=== PATIENT | male | born 1935 | race Caucasian/White ===

== ENCOUNTER 2017-02-24 14:39 | Emergency (ER) | payer OTHER ==
[~2017-02-24] VITALS: Ht 167.6 cm; Wt 78.5 kg
[~2017-02-24 14:39] MED LIST: ASCA500 PO
[2017-02-24 14:41] VITALS: TEMP 36.6
[2017-02-24 15:03] VITALS: O2SAT 97
[2017-02-24 15:09] VITALS: Ht 167.6 cm; Wt 78.5 kg
[2017-02-24 15:24] LABS: BASO % 0.4 %; BASO ABS # 0.03 K/uL (0-0.2); COMPLETE YES; EOS % 1.9 %; IG% 0.1 %; LYMPH % 22.8 %; LYMPH ABS # 1.52 K/uL (1.2-3.4); MEAN CELL VOLUME 95.2 fL (80-100); MEAN CORPUSCULAR HEMOGLOBIN 32.3 pg (25-34); MEAN CORPUSCULAR HGB CONC 33.9 g/dl (32-36); MEAN PLATELET VOLUME 11.9 fL (7.4-10.4); NEUT % 65.8 %; PLATELET COUNT 168 K/uL (130-400); RED BLOOD COUNT 4.62 M/uL (4.7-6.1); WHITE BLOOD COUNT 6.68 K/uL (4.8-10.8)
[2017-02-24 15:30] LABS: BLOOD UREA NITROGEN 19 mg/dl (7-18); BUN/CREATININE RATIO 14.8 (10-20); CARBON DIOXIDE 27 mmol/L (21-32); CHLORIDE 108 mmol/L (98-107); GLUCOSE 117 mg/dl (70-99); MAGNESIUM 2.6 mg/dl (1.8-2.4); POTASSIUM 4.1 mmol/L (3.5-5.1); SODIUM 142 mmol/L (136-145)
[2017-02-24] MEDS ORDERED: ACET-1256 PO (15:32)
[2017-02-24] MEDS ORDERED: [UNRECOGNIZED DRUG - CODE] TD (15:32)
[2017-02-24] MEDS ORDERED: TRMCR180 TOP (15:32)
[2017-02-24] MEDS ORDERED: AMLO-110 PO (15:32)
[2017-02-24] MEDS ORDERED: ATEN-173 PO (15:32)
[2017-02-24 15:34] LABS: PARTIAL THROMBOPLASTIN RATIO 0.9; PROTHROMBIN TIME (PATIENT) 10.5 SECONDS (9.0-12.0)
[2017-02-24 15:41] LABS: ALKALINE PHOSPHATASE 83 U/L (45-117); ALT/SGPT 17 U/L (12-78); AST/SGOT 13 U/L (15-37); CKMB/CK RATIO 1.5 (0-3.0); THYROID STIMULATING HORMONE 0.924 uIu/ml (0.300-4.500)
--- NOTE | 2017-02-24 15:56 | DIAGNOSTIC IMAGING REPORT ---
CHEST ONE VIEW PORTABLE CLINICAL HISTORY: Weakness. COMPARISON STUDY: No previous studies for comparison. FINDINGS: Incidental note is made of severe arthritis of both glenohumeral joints, more severe on the left. No pneumothorax or pleural effusion is identified. There is no consolidation to suggest pneumonia. Pulmonary vascularity is normal. A 9 mm density projecting of the right lower lung could reflect a calcified nodule or summation of pulmonary vessels. This is benign. IMPRESSION: No acute cardiopulmonary findings. Electronically signed by: Juvenal Kingston M.D. 02/24/2017 3:55 PM Dictated Date/Time: 02/24/2017 3:54 PM
[2017-02-24 16:30] LABS: LYME DISEASE AB IGG NEG (NEG); LYME DISEASE AB IGM NEG (NEG)
[2017-02-24 17:23] LABS: URINE APPEARANCE CLEAR (CLEAR); URINE BILIRUBIN NEG (NEG); URINE COLOR YELLOW; URINE NITRITE NEG (NEG); URINE SPECIFIC GRAVITY 1.021 (1.000-1.030); UROBILINOGEN NEG (NEG)
[2017-02-24 17:32] LABS: MANUAL MICROSCOPIC REQUIRED? NO; REVIEW REQ? NO
[2017-02-24 20:02] VITALS: BP 152/81; PULSE 63; O2SAT 96
--- NOTE | 2017-02-24 20:25 | EMERGENCY ROOM VISIT NOTE ---
History Report prepared by Ortega: Kirk Jacobs Under the Supervision of: Dr. Ishmael Mascorro M.D. First contact with patient: 15:00 Chief Complaint: RESPIRATORY PROBLEMS Stated Complaint: HEART IS SKIPPING A BEAT History of Present Illness The patient is an 81 year old male who presents to the Emergency Room with complaints of waxing and waning weakness that started a couple days ago. He says that he has been generally feeling weak and tired the past few days, which worsens at night and in the morning. The patient adds that the last couple nights, he has not slept well because at times it feels like his heart is racing. He says that he has not been short of breath. He states that his heart does not pound, but a couple times, it felt like his heart may have been skipping a beat upon breathing. The patient notes that this has happened before to him, and that was caused by taking an [id number] pill for sinuses. The patient was seen at the [facility] for this, and did not have to be brought into the hospital. He notes that for a couple years, he has had episodes of pain down his arms and legs and into his neck, which last up to a couple hours. 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 He has never had to have any heart operations. The patient says that currently, he has an aching pain at his joints, which is a bit worse than the pain usually is. He does note that he has sciatic nerve and arthritis issues. Currently, he says that he feels a tad better than he does at night, but is still weak and tired. Per the patient's , the patient has had an increased urinary frequency at night recently. The patient says that he has not started any new medications or supplements recently. The patient has not seen by anyone for his current episode of symptoms yet. He adds that he has a strong family history of heart disease, and his younger brother around 74 of heart disease. The patient says that he takes Atenolol and Amlodipine for his high blood pressure. Pt denies LOC, headache, fevers, chills, diaphoresis, visual changes, chest pain, nausea, vomiting, abdominal pain, any worsened back pain, melena, hematochezia, numbness , lymphadenopathy, rash, any worsened leg swelling, or other complaints. Source of History: patient, spouse/significant other Onset: A couple days ago Position: other (global - weakness) Timing: waxes/wanes Modifying Factors (Worsening): other (at night and in morning) Associated Symptoms: + neck pain, + urinary symptoms (increased urinary frequency at night), + fatigue Note: Associated symptoms: Episodes of aching pain at joints, worsened recently. At times feels like heart races, skips a beat. Review of Systems See HPI for pertinent positives and negatives. A total of ten systems were reviewed and were otherwise negative. Past Medical & Surgical Medical Problems: (1) Arthritis (2) HTN (hypertension) Family History Cancer Gallbladder disease Heart disease Hypertension Seizures Social History Smoking Status: Never Smoker Marital Status: Housing Status: lives with family Occupation Status: retired Current/Historical Medications Scheduled Acetaminophen (Tylenol), 500 MG PO PRN UD Amlodipine (Norvasc), 7.5 MG PO DAILY Atenolol (Tenormin), 12.5 MG PO DAILY Soap & Cleansers (Cerave Foaming Facial Nestor), 1 APPLN TD PRN Scheduled PRN Triamcinolone Acet (Aristocort 0.1%), 1 APPLN TOP BID PRN for PSORIASIS Allergies Coded Allergies: Penicillins (Verified Allergy, Unknown, rash, 05/30/13) Adhesives (Unverified Adverse Reaction, blisters sklin, 05/30/13) Physical Exam Vital Signs Date Time Temp Pulse Resp B/P (MAP) Pulse Ox O2 Delivery O2 Flow Rate FiO2 02/24/17 20:02 63 18 152/81 96 02/24/17 18:55 65 02/24/17 18:40 95 Room Air 02/24/17 18:30 66 18 127/73 97 Room Air 02/24/17 18:27 66 127/73 97 Room Air 67 140/74 72 135/75 02/24/17 16:55 64 18 128/63 98 Room Air 02/24/17 16:00 61 18 121/63 96 Room Air 02/24/17 15:06 70 02/24/17 15:03 97 Room Air 02/24/17 15:03 97 02/24/17 14:41 36.6 69 18 154/84 96 Room Air Physical Exam GENERAL: Awake, alert, well-appearing, in no distress HENT: Normocephalic, atraumatic. Oropharynx unremarkable. EYES: Normal conjunctiva. Sclera non-icteric. NECK: Supple. No nuchal rigidity. FROM. No JVD. RESPIRATORY: Clear to auscultation. CARDIAC: Regular rate, normal rhythm. Extremities warm and well perfused. Pulses equal. ABDOMEN: Soft, non-distended. No tenderness to palpation. No rebound or guarding. No masses. RECTAL: Deferred. MUSCULOSKELETAL: Chest examination reveals no tenderness. The back is symmetrical on inspection without obvious abnormality. There is no CVA tenderness to palpation. No joint edema. LOWER EXTREMITIES: Calves are equal size bilaterally and non-tender. Trace lower extremity edema. No discoloration. NEURO: Normal sensorium. No sensory or motor deficits noted. SKIN: No rash or jaundice noted. Medical Decision & Procedures ER Provider Diagnostic Interpretation: X-ray: Per my interpretation, radiologist review. CHEST ONE VIEW PORTABLE CLINICAL HISTORY: Weakness. COMPARISON STUDY: No previous studies for comparison. FINDINGS: Incidental note is made of severe arthritis of both glenohumeral joints, more severe on the left. No pneumothorax or pleural effusion is identified. There is no consolidation to suggest pneumonia. Pulmonary vascularity is normal. A 9 mm density projecting of the right lower lung could reflect a calcified nodule or summation of pulmonary vessels. This is benign. IMPRESSION: No acute cardiopulmonary findings. Electronically signed by: Juvenal Kingston M.D. 02/24/2017 3:55 PM Dictated Date/Time: 02/24/2017 3:54 PM Laboratory Results 02/24/17 15:00 Red Blood Count 4.62, Mean Corpuscular Volume 95.2, Mean Corpuscular Hemoglobin 32.3, Mean Corpuscular Hemoglobin Concent 33.9, Mean Platelet Volume 11.9, Neutrophils (%) (Auto) 65.8, Lymphocytes (%) (Auto) 22.8, Monocytes (%) (Auto) 9.0, Eosinophils (%) (Auto) 1.9, Basophils (%) (Auto) 0.4, Neutrophils # (Auto) 4.39, Lymphocytes # (Auto) 1.52, Monocytes # (Auto) 0.60, Eosinophils # (Auto) 0.13, Basophils # (Auto) 0.03 02/24/17 15:00 Test 02/24/17 15:00 02/24/17 16:55 White Blood Count 6.68 K/uL (4.8-10.8) Red Blood Count 4.62 M/uL (4.7-6.1) Hemoglobin 14.9 g/dL (14.0-18.0) Hematocrit 44.0 % (42-52) Mean Corpuscular Volume 95.2 fL (80-100) Mean Corpuscular Hemoglobin 32.3 pg (25-34) Mean Corpuscular Hemoglobin Concent 33.9 g/dl (32-36) Platelet Count 168 K/uL (130-400) Mean Platelet Volume 11.9 fL (7.4-10.4) Neutrophils (%) (Auto) 65.8 % Lymphocytes (%) (Auto) 22.8 % Monocytes (%) (Auto) 9.0 % Eosinophils (%) (Auto) 1.9 % Basophils (%) (Auto) 0.4 % Neutrophils # (Auto) 4.39 K/uL (1.4-6.5) Lymphocytes # (Auto) 1.52 K/uL (1.2-3.4) Monocytes # (Auto) 0.60 K/uL (0.11-0.59) Eosinophils # (Auto) 0.13 K/uL (0-0.5) Basophils # (Auto) 0.03 K/uL (0-0.2) RDW Standard Deviation 48.5 fL (36.4-46.3) RDW Coefficient of Variation 14.0 % (11.5-14.5) Immature Granulocyte % (Auto) 0.1 % Immature Granulocyte # (Auto) 0.01 K/uL (0.00-0.02) Prothrombin Time 10.5 SECONDS (9.0-12.0) Prothromb Time International Ratio 1.0 (0.9-1.1) Activated Partial Thromboplast Time 24.5 SECONDS (21.0-31.0) Partial Thromboplastin Ratio 0.9 Anion Gap 7.0 mmol/L (3-11) Est Creatinine Clear Calc Drug Dose 43.9 ml/min Estimated GFR () 59.3 Estimated GFR (Non- 51.2 BUN/Creatinine Ratio 14.8 (10-20) Calcium Level 9.0 mg/dl (8.5-10.1) Magnesium Level 2.6 mg/dl (1.8-2.4) Total Bilirubin 0.4 mg/dl (0.2-1) Direct Bilirubin 0.1 mg/dl (0-0.2) Aspartate Amino Transf (AST/SGOT) 13 U/L (15-37) Alanine Aminotransferase (ALT/SGPT) 17 U/L (12-78) Alkaline Phosphatase 83 U/L (45-117) Total Creatine Kinase 74 U/L (39-308) Creatine Kinase MB 1.1 ng/ml (0.5-3.6) Creatine Kinase MB Ratio 1.5 (0-3.0) Troponin I < 0.015 ng/ml (0-0.045) Pro-B-Type Natriuretic Peptide 110 pg/ml (0-1800) Total Protein 7.1 gm/dl (6.4-8.2) Albumin 3.9 gm/dl (3.4-5.0) Thyroid Stimulating Hormone (TSH) 0.924 uIu/ml (0.300-4.500) Lyme Disease IgG Antibody NEG (NEG) Lyme Disease IgM Antibody NEG (NEG) Urine Color YELLOW Urine Appearance CLEAR (CLEAR) Urine pH 7.0 (4.5-7.5) Urine Specific [place] 1.021 (1.000-1.030) Urine Protein NEG (NEG) Urine Glucose (UA) NEG (NEG) Urine Ketones NEG (NEG) Urine Occult Blood NEG (NEG) Urine Nitrite NEG (NEG) Urine Bilirubin NEG (NEG) Urine Urobilinogen NEG (NEG) Urine Leukocyte Esterase NEG (NEG) Laboratory results reviewed by me ECG Indication: weakness Rate (beats per minute): 76 Rhythm: normal sinus Findings: no acute ischemic change, no ectopy ED Course 1528: The patient was evaluated in room B7. A complete history and physical exam was performed. 1858: The monitor tech financial operations clerk noted that during the patient's time here, the patient has had some PVCs. 1925: I reevaluated the patient and he is resting comfortably. He requested a referral to cardiology here. Discussed results and discharge instructions: he verbalized understanding and agreement. The patient is ready for discharge. Medical Decision Triage Nursing notes reviewed and agree them. Additional history obtained from the family. The patient's history was concerning for vague weakness and palpitations. Differential diagnosis: Etiologies such as electrolyte abnormality, cardiac dysrhythmia, thyroid dysfunction, ACS, CHF, infection, gastrointestinal, as well as others were entertained. Physical examination: Benign as above. Negative orthostasis. Negative ambulatory pulse ox oximetry monitoring. ER treatment provided: Cardiac monitoring. No medication given. The patient was asymptomatic. On reassessment the patient felt better. Diagnostic interpretation by me: The electrocardiogram was negative for pathologic change. The labs revealed An unremarkable CBC and chemistry panel. Cardiac markers and BNP negative. TSH normal. Lyme test normal. Urine test normal. Imaging studies: Chest x-ray as above. The patient is doing well at this time. Cardiac monitoring did reveal occasional PVCs. No dysrhythmia was noted. Testing being negative and him feeling well I discussed close outpatient follow-up. The patient did request a referral to cardiology here and this was given. He will take it easy over the weekend. He will follow-up with his primary office. If he worsens in any way he will come back to the emergency department for reevaluation. After the results were discussed the patient did question if this may be anxiety related although he does not feel significantly anxious at the time. The patient did not have any exertional symptoms. By the evaluation outlined above emergent etiologies such as electrolyte abnormality, cardiac dysrhythmia, thyroid dysfunction, pulmonary embolism, infection, as well as others were deemed relatively unlikely. The patient and were informed about the findings as listed above. All questions were answered and they were very pleased with the treatment. Return instructions were outlined and the patient was discharged in stable condition. Outpatient prescription management: None Referral: The patient was referred back to cardiology and his primary care physician for follow-up for a recheck of the current condition. Medication Reconcilliation Current Medication List: was personally reviewed by me Blood Pressure Screening Patient's blood pressure: Elevated blood pressure Blood pressure disposition: Referred to PCP Impression Primary Impression: Palpitations Additional Impressions: PVCs (premature ventricular contractions) Weakness Scribe Attestation The scribe's documentation has been prepared under my direction and personally reviewed by me in its entirety. I confirm that the note above accurately reflects all work, treatment, procedures, and medical decision making performed by me. Departure Information Dispostion Home / Self-Care Referrals Robert Guan PA-C (PCP) Thee Oquendo MD Forms HOME CARE DOCUMENTATION FORM, IMPORTANT VISIT INFORMATION, WORK / SCHOOL INSTRUCTIONS Patient Instructions My [facility] Additional Instructions Rest and drink plenty of fluids as tolerated. Continue current medications. Resume normal activities once your symptoms resolve. Eat a heart healthy, low fat, low cholesterol diet. Return to the ER immediately for passing out, chest pain, abdominal pain, vomiting, fevers, difficulty breathing, worsening of your condition, or as needed. Follow up with your primary physician in 2-3 days for a recheck of your current condition. Follow-up with [facility] cardiology as discussed. The number is listed below under Dr. Oquendo. Call the office tomorrow. If they cannot accommodate you in a reasonable time frame call back to the emergency Department at [phone] and discuss the need for the appointment with the manager case. Problem Qualifiers
== END 2017-02-24 20:04 | disposition home or self-care (01) ==
LOC: C.EDB 14:42
DX: R00.2 Palpitations (principal); I49.3 Ventricular premature depolarization; R53.1 Weakness; I10 Essential (primary) hypertension; M19.90 Unspecified osteoarthritis, unspecified site; M79.601 Pain in right arm; Z80.9 Family history of malignant neoplasm, unspecified; Z82.49 Family history of ischemic heart disease and other diseases of the circulatory system; Z82.0 Family history of epilepsy and other diseases of the nervous system

== ENCOUNTER 2017-11-02 17:50 | Emergency (ER) | payer OTHER ==
[~2017-11-02] VITALS: Ht 167.6 cm; Wt 73.8 kg
[~2017-11-02 17:50] MED LIST changes: +ACET-1256 PO; +AMLO-110 PO; -ASCA500 PO; +ATEN-173 PO; +TRMCR180 TOP; +[UNRECOGNIZED DRUG - CODE] TD
[2017-11-02 17:51] VITALS: TEMP 36.5; Ht 167.6 cm; Wt 73.8 kg
--- NOTE | 2017-11-02 18:02 | EMERGENCY ROOM VISIT NOTE ---
History Report prepared by Ortega: Tee Rose Under the Supervision of: Dr. Monster Keenan D.O. First contact with patient: 17:54 Chief Complaint: CHEST PAIN Stated Complaint: CHEST PAIN History of Present Illness The patient is an 82 year old male who presents to the Emergency Room with complaints of constant left-sided abdominal pain beginning today. The patient states that his abdominal pain started as a pinch in his lower abdomen when he moves his arm, but has since worsened with arm movement. He notes that his doctor was worried about his heart. He reports that he is also experiencing intermittent left shoulder pain. The patient states that he has a history of arthritis, but has never experienced left shoulder pain before, prompting his visit to the emergency department tonight. He rates his pain as a 2/10. He denies any back pain, nausea, vomiting, CP, urinary symptoms, and recent falls. Source of History: patient Onset: today Position: abdomen (left-sided) Symptom Intensity: 2/10 Timing: constant Modifying Factors (Worsening): other (moving his left arm) Associated Symptoms: No chest pain, No nausea, No vomiting, No back pain, No urinary symptoms Note: The patient also complains of intermittent left shoulder pain. Review of Systems See HPI for pertinent positives & negatives. A total of 10 systems reviewed and were otherwise negative. Past Medical & Surgical Medical Problems: (1) Arthritis (2) HTN (hypertension) Family History Cancer Diabetes mellitus Gallbladder disease Heart disease Hypertension Seizures Social History Smoking Status: Never Smoker Marital Status: Housing Status: lives with family Occupation Status: retired Current/Historical Medications Scheduled Acetaminophen (Tylenol), 500 MG PO PRN UD Amlodipine (Norvasc), 7.5 MG PO DAILY Atenolol (Tenormin), 12.5 MG PO DAILY Cholecalciferol (Vitamin D3), 1 TAB PO DAILY Soap & Cleansers (Cerave Foaming Facial Nestor), 1 APPLN TD PRN Scheduled PRN Oxycodone Immediate Rel Tab (Roxicodone Ir), 1-2 TAB PO Q4H PRN for Severe Pain Triamcinolone Acet (Aristocort 0.1%), 1 APPLN TOP BID PRN for PSORIASIS Allergies Coded Allergies: Penicillins (Verified Allergy, Unknown, rash, 11/02/17) Adhesives (Unverified Adverse Reaction, Unknown, blisters sklin, 11/02/17) Uncoded Allergies: ANTIHISTAMINE (Allergy, Unknown, "heart race", 11/02/17) Physical Exam Vital Signs Date Time Temp Pulse Resp B/P (MAP) Pulse Ox O2 Delivery O2 Flow Rate FiO2 11/02/17 19:07 73 20 152/75 97 Room Air 11/02/17 18:23 59 11/02/17 18:19 98 Room Air 11/02/17 18:19 98 Room Air 11/02/17 17:51 36.5 85 20 160/74 98 Room Air Physical Exam GENERAL: Patient is awake, alert, and in no acute distress. Patient is resting comfortably and showing no signs of anxiety EYES: The conjunctivae are clear. The pupils are round and reactive. EARS, NOSE, MOUTH AND THROAT: The nose is without any evidence of any deformity. Mucous membranes are moist tongue is midline NECK: The neck is nontender and supple. RESPIRATORY: Normal respiratory effort is noted there is no evidence of wheezing rhonchi or rales CARDIOVASCULAR: Regular rate and rhythm noted there no murmurs rubs or gallops normal S1 normal S2 GASTROINTESTINAL: Abdomen mildly distended but soft, no guarding or rigidity appreciated, no hernia appreciated. BACK: No midline tenderness or or step-off noted range of motion in flexion extension as well as rotation no signs of muscle spasm noted MUSCULOSKELETAL/EXTREMITIES: There is no evidence of gross deformity full range of motion is noted in the hips and shoulders SKIN: There is no obvious evidence of any rash. There are no petechiae, pallor or cyanosis noted. Pedal edema bilaterally. NEUROLOGIC: Patient is awake alert and oriented x3, gait was steady. Medical Decision & Procedures ER Provider Diagnostic Interpretation: Radiology results as stated below per my review and radiologist interpretation: CHEST ONE VIEW PORTABLE FINDINGS: The lungs are clear. Cardiac silhouette is top normal in size. No pleural effusions. No pneumothorax. Advanced degenerative changes within the bilateral shoulders. IMPRESSION: No acute process. Electronically signed by: Jack Vázquez M.D. 11/02/2017 7:35 PM [address] AND PELVIS CT WITHOUT CONTRAST FINDINGS: Lung bases are generally clear. Imaged inferior cardiac chambers are unremarkable. No pneumatosis or pneumoperitoneum. Liver, spleen, gallbladder, pancreas and adrenal glands are unremarkable. Mild bilateral perinephric stranding. Renal sinus cysts are noted bilaterally. No renal calculi or hydronephrosis. Pelvic structures are suboptimally visualized secondary to streak artifact from right hip arthroplasty. Mild urinary bladder distention. Prostamegaly. Small fat filled left inguinal hernia. Extensive calcification of the aorta with mild ectasia, 2.5 x 2.3 cm. No aneurysm. No bulky adenopathy identified. Retroaortic left renal vein. Mild stranding of the mid mesentery with scattered nonenlarged lymph nodes. Extensive colonic diverticulosis without CT evidence of acute diverticulitis. The appendix is not definitively seen. Soft tissues are unremarkable. 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 Dystrophic calcifications about the right hip are noted. Severe left hip osteoarthritis with large subcortical cystic changes. Mild levoscoliosis of the lumbar spine with multilevel discogenic degenerative changes, spondylitic spurring and facet arthrosis. The bones are mildly demineralized. IMPRESSION: 1. No renal calculi or obstructive uropathy. 2. 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 3. Colonic diverticulosis without diverticulitis. 4. Prostamegaly. 5. Severe left hip osteoarthritis. Electronically signed by: Yandel De La Fuente M.D. 11/02/2017 7:07 PM Laboratory Results 11/02/17 16:15 Red Blood Count 4.51, Mean Corpuscular Volume 95.3, Mean Corpuscular Hemoglobin 31.9, Mean Corpuscular Hemoglobin Concent 33.5, Mean Platelet Volume 10.6, Neutrophils (%) (Auto) 61.8, Lymphocytes (%) (Auto) 25.8, Monocytes (%) (Auto) 8.7, Eosinophils (%) (Auto) 2.9, Basophils (%) (Auto) 0.6, Neutrophils # (Auto) 3.85, Lymphocytes # (Auto) 1.61, Monocytes # (Auto) 0.54, Eosinophils # (Auto) 0.18, Basophils # (Auto) 0.04 11/02/17 16:15 Test 11/02/17 16:15 White Blood Count 6.23 K/uL (4.8-10.8) Red Blood Count 4.51 M/uL (4.7-6.1) Hemoglobin 14.4 g/dL (14.0-18.0) Hematocrit 43.0 % (42-52) Mean Corpuscular Volume 95.3 fL (80-100) Mean Corpuscular Hemoglobin 31.9 pg (25-34) Mean Corpuscular Hemoglobin Concent 33.5 g/dl (32-36) Platelet Count 148 K/uL (130-400) Mean Platelet Volume 10.6 fL (7.4-10.4) Neutrophils (%) (Auto) 61.8 % Lymphocytes (%) (Auto) 25.8 % Monocytes (%) (Auto) 8.7 % Eosinophils (%) (Auto) 2.9 % Basophils (%) (Auto) 0.6 % Neutrophils # (Auto) 3.85 K/uL (1.4-6.5) Lymphocytes # (Auto) 1.61 K/uL (1.2-3.4) Monocytes # (Auto) 0.54 K/uL (0.11-0.59) Eosinophils # (Auto) 0.18 K/uL (0-0.5) Basophils # (Auto) 0.04 K/uL (0-0.2) RDW Standard Deviation 50.3 fL (36.4-46.3) RDW Coefficient of Variation 14.4 % (11.5-14.5) Immature Granulocyte % (Auto) 0.2 % Immature Granulocyte # (Auto) 0.01 K/uL (0.00-0.02) Prothrombin Time 10.0 SECONDS (9.0-12.0) Prothromb Time International Ratio 1.0 (0.9-1.1) Activated Partial Thromboplast Time 22.8 SECONDS (21.0-31.0) Partial Thromboplastin Ratio 0.9 Anion Gap 6.0 mmol/L (3-11) Est Creatinine Clear Calc Drug Dose 43.9 ml/min Estimated GFR () 66.9 Estimated GFR (Non- 57.7 BUN/Creatinine Ratio 21.1 (10-20) Calcium Level 9.1 mg/dl (8.5-10.1) Magnesium Level 2.3 mg/dl (1.8-2.4) Total Bilirubin 0.4 mg/dl (0.2-1) Direct Bilirubin 0.1 mg/dl (0-0.2) Aspartate Amino Transf (AST/SGOT) 16 U/L (15-37) Alanine Aminotransferase (ALT/SGPT) 20 U/L (12-78) Alkaline Phosphatase 76 U/L (45-117) Total Creatine Kinase 61 U/L (39-308) Creatine Kinase MB 1.0 ng/ml (0.5-3.6) Creatine Kinase MB Ratio 1.6 (0-3.0) Troponin I < 0.015 ng/ml (0-0.045) Total Protein 7.1 gm/dl (6.4-8.2) Albumin 3.9 gm/dl (3.4-5.0) Lipase 141 U/L (73-393) Laboratory results per my review. Medications Administered Medications (Trade) Dose Ordered Sig/Judith Route Start Time Stop Time Status Last Admin Dose Admin Oxycodone HCl (Roxicodone Immediate Rel 5MG Home Pack) 1 homepack UD ONCE PO 11/02/17 19:30 11/02/17 19:31 DC 11/02/17 19:30 1 HOMEPACK ECG Per My Interpretation Indication: abdominal pain Rate (beats per minute): 63 Rhythm: normal sinus Findings: no ectopy, other (No acute ST segments) Comparison ECG Date: 02/24/2017 Change: no significant change ED Course 175: The patient was evaluated in room C6. A complete history and physical examination were performed. 1915: Upon reevaluation, the patient is stable. I discussed the results and treatment plan with him. He verbalized agreement of the treatment plan. The patient was discharged home. 1929: Oxycodone HCl 1 homepack PO Medical Decision Prior records/ancillary studies reviewed. Triage Nursing notes reviewed. The patient's history was concerning for abdominal pain. Differential diagnosis: Etiologies such as appendicitis, diverticulitis, PUD, biliary pathology, UTI, pancreatitis, obstruction, mesenteric ischemia, aortic pathology, infections, inflammatory bowel disease, renal colic, as well as others were entertained. The patient is an 82-year-old male who presented to the emergency department for an evaluation of left lower quadrant abdominal pain. The patient did not have a physical exam consistent with an acute surgical abdomen. The patient did not wish to receive any pain medication while he was in the emergency department. I discussed patient's laboratory and radiographic studies with him. No definite cause for his abdominal pain could be found. He was encouraged to continue all medications as prescribed and call his family doctor in the morning. Otherwise he was encouraged to rest and avoid any strenuous activity. I also encouraged him to return the emergency department immediately if symptoms change worsen or the need arises. Medication Reconcilliation Current Medication List: was personally reviewed by me Blood Pressure Screening Patient's blood pressure: Elevated blood pressure Blood pressure disposition: Elevated BP felt to be situational Impression Primary Impression: LLQ abdominal pain Scribe Attestation The scribe's documentation has been prepared under my direction and personally reviewed by me in its entirety. I confirm that the note above accurately reflects all work, treatment, procedures, and medical decision making performed by me. Departure Information Dispostion Home / Self-Care Prescriptions Oxycodone Immediate Rel Tab (ROXICODONE IR) 5 Mg Tab 1-2 TAB PO Q4H Y for Severe Pain, #20 TAB Prov: Monster Keenan, DO 11/02/17 Referrals Robert Guan PA-C (PCP) Forms HOME CARE DOCUMENTATION FORM, IMPORTANT VISIT INFORMATION Patient Instructions My [facility] Additional Instructions Continue all medications as prescribed. Drink plenty clear liquids. Continue using Tylenol as directed for mild pain. Call your family doctor in the morning to schedule a follow-up appointment. If you continue to use the stronger pain medication I would recommend an [id number] stool softener such as MiraLAX. Return to the emergency department immediately symptoms change worsen or the need arises. 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
[2017-11-02] MEDS ORDERED: CHOL1000 PO (18:05)
[2017-11-02 18:19] VITALS: O2SAT 98
[2017-11-02 18:23] LABS: BASO % 0.6 %; BASO ABS # 0.04 K/uL (0-0.2); EOS % 2.9 %; EOS ABS # 0.18 K/uL (0-0.5); HEMOGLOBIN 14.4 g/dL (14.0-18.0); IG# 0.01 K/uL (0.00-0.02); LYMPH % 25.8 %; LYMPH ABS # 1.61 K/uL (1.2-3.4); MEAN CELL VOLUME 95.3 fL (80-100); MEAN CORPUSCULAR HEMOGLOBIN 31.9 pg (25-34); MEAN CORPUSCULAR HGB CONC 33.5 g/dl (32-36); MEAN PLATELET VOLUME 10.6 fL (7.4-10.4); MONO % 8.7 %; MONO ABS # 0.54 K/uL (0.11-0.59); NEUT % 61.8 %; NEUT ABS # 3.85 K/uL (1.4-6.5); PLATELET COUNT 148 K/uL (130-400); RED CELL DISTRIBUTION WIDTH CV 14.4 % (11.5-14.5); RED CELL DISTRIBUTION WIDTH SD 50.3 fL (36.4-46.3); WHITE BLOOD COUNT 6.23 K/uL (4.8-10.8)
[2017-11-02 18:44] LABS: PTT PATIENT 22.8 SECONDS (21.0-31.0)
[2017-11-02 18:56] LABS: ALBUMIN 3.9 gm/dl (3.4-5.0); ALKALINE PHOSPHATASE 76 U/L (45-117); ALT/SGPT 20 U/L (12-78); AST/SGOT 16 U/L (15-37); BLOOD UREA NITROGEN 25 mg/dl (7-18); CALCIUM 9.1 mg/dl (8.5-10.1); CARBON DIOXIDE 28 mmol/L (21-32); CREATININE 1.17 mg/dl (0.60-1.40); GLUCOSE 100 mg/dl (70-99); LIPASE 141 U/L (73-393); POTASSIUM 4.4 mmol/L (3.5-5.1); SODIUM 141 mmol/L (136-145); TOTAL PROTEIN 7.1 gm/dl (6.4-8.2)
[2017-11-02 19:07] VITALS: BP 152/75; PULSE 73; O2SAT 97
--- NOTE | 2017-11-02 19:09 | DIAGNOSTIC IMAGING REPORT ---
ABDOMEN AND PELVIS CT WITHOUT CONTRAST CT DOSE: 914.43 mGycm HISTORY: Acute left-sided flank pain LEFT FLANK PAIN TECHNIQUE: Multiaxial CT images of the abdomen and pelvis were performed without contrast. A dose lowering technique was utilized adhering to the principles of ALARA. COMPARISON STUDY: None. FINDINGS: Lung bases are generally clear. Imaged inferior cardiac chambers are unremarkable. No pneumatosis or pneumoperitoneum. Liver, spleen, gallbladder, pancreas and adrenal glands are unremarkable. Mild bilateral perinephric stranding. Renal sinus cysts are noted bilaterally. No renal calculi or hydronephrosis. Pelvic structures are suboptimally visualized secondary to streak artifact from right hip arthroplasty. Mild urinary bladder distention. Prostamegaly. Small fat filled left inguinal hernia. Extensive calcification of the aorta with mild ectasia, 2.5 x 2.3 cm. No aneurysm. No bulky adenopathy identified. Retroaortic left renal vein. Mild stranding of the mid mesentery with scattered nonenlarged lymph nodes. Extensive colonic diverticulosis without CT evidence of acute diverticulitis. The appendix is not definitively seen. Soft tissues are unremarkable. 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 Dystrophic calcifications about the right hip are noted. Severe left hip osteoarthritis with large subcortical cystic changes. Mild levoscoliosis of the lumbar spine with multilevel discogenic degenerative changes, spondylitic spurring and facet arthrosis. The bones are mildly demineralized. IMPRESSION: 1. No renal calculi or obstructive uropathy. 2. 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 3. Colonic diverticulosis without diverticulitis. 4. Prostamegaly. 5. Severe left hip osteoarthritis. Electronically signed by: Yandel De La Fuente M.D. 11/02/2017 7:07 PM Dictated Date/Time: 11/02/2017 7:01 PM
[2017-11-02] MEDS ORDERED: OXYC1TAB3 PO (19:25)
[2017-11-02] MEDS ORDERED: OXYCODONE IR HOME PACK PO ONE (19:30)
--- NOTE | 2017-11-02 19:37 | DIAGNOSTIC IMAGING REPORT ---
CHEST ONE VIEW PORTABLE HISTORY: Atypical CHEST PAIN COMPARISON: Chest 02/24/2017. FINDINGS: The lungs are clear. Cardiac silhouette is top normal in size. No pleural effusions. No pneumothorax. Advanced degenerative changes within the bilateral shoulders. IMPRESSION: No acute process. Electronically signed by: Jack Vázquez M.D. 11/02/2017 7:35 PM Dictated Date/Time: 11/02/2017 7:34 PM
== END 2017-11-02 19:35 | disposition home or self-care (01) ==
LOC: C.EDB 17:50 → C.EDC 19:35
DX: R10.32 Left lower quadrant pain (principal); M19.90 Unspecified osteoarthritis, unspecified site; I10 Essential (primary) hypertension; Z80.9 Family history of malignant neoplasm, unspecified; Z83.3 Family history of diabetes mellitus; Z82.0 Family history of epilepsy and other diseases of the nervous system; Z82.49 Family history of ischemic heart disease and other diseases of the circulatory system; Z83.79 Family history of other diseases of the digestive system; Z79.899 Other long term (current) drug therapy; Z88.0 Allergy status to penicillin; Z88.8 Allergy status to other drugs, medicaments and biological substances; Z91.048 Other nonmedicinal substance allergy status